=== PATIENT | female | born 1965 | race African-American/Black ===

== ENCOUNTER 2024-05-01 15:35 | Emergency (ER) | payer OTHER, MEDICAID ==
[~2024-05-01] VITALS: Ht 137.2 cm; Wt 36.7 kg
[2024-05-01 15:38] VITALS: O2SAT 100
[2024-05-01 18:10] VITALS: BP 129/86; PULSE 75; RESP 19; TEMP 36.11400; O2SAT 100
== END 2024-05-01 18:59 | disposition home or self-care (01) ==
LOC: ER 15:35
DX: S82.202A Unspecified fracture of shaft of left tibia, initial encounter for closed fracture (principal); Z98.890 Other specified postprocedural states; Z86.59 Personal history of other mental and behavioral disorders; X58.XXXA Exposure to other specified factors, initial encounter; Y93.89 Activity, other specified; Y92.89 Other specified places as the place of occurrence of the external cause; Y99.8 Other external cause status
CPT/HCPCS: 29515; 73610; 99283